=== PATIENT | female | born 1985 | race Caucasian/White ===

== ENCOUNTER 2016-12-19 22:15 | Emergency (ER) | payer MEDICAID ==
[2016-12-19] MEDS ORDERED: IPRATROPIUM/ALBUTEROL 3 ML DEYVIAL IH ONE (23:06)
[2016-12-19] MEDS ORDERED: predniSONE 20 MG TAB PO ONE (23:35)
--- NOTE | 2016-12-19 23:38 | EDPHY ---
H & P Stated Complaint: FEVER SEVERE COUGH SINCE SAT NIGHT Time Seen by Provider: 12/19/16 23:04 HPI/ROS: HPI The patient presents with Cough for the last 3 days which is worse at night, though constant, dry without any sputum production, not associated with any rhinorrhea or sore throat. She is not sure if she had a fever. She denies any known sick contacts. She does have a history of asthma and her albuterol as currently . She does not feel it is helping her with her symptoms. She denies any hemoptysis. REVIEW OF SYSTEMS Constitutional: No fever, no chills. Eyes: No discharge. ENT: No sore throat. Cardiovascular: No chest pain, no palpitations. Respiratory: see HPI Gastrointestinal: No abdominal pain, no vomiting. Genitourinary: No hematuria. Musculoskeletal: No back pain. Skin: No rashes. Neurological: No headache. PMHx: asthma Soc Hx: nonsmoker PHYSICAL General Appearance: Alert, no distress Eyes: Pupils equal and round no pallor or injection ENT, Mouth: Mucous membranes moist Respiratory: occasional dry cough, breathing comfortably,There are no retractions, lungs are clear to auscultation Cardiovascular: Regular rate and rhythm Gastrointestinal: Abdomen is soft and non-tender, no masses, bowel sounds normal Neurological: A&O, moves all extremities Skin: Warm and dry, no rashes Musculoskeletal: Neck is supple non tender Extremities: symmetrical, full range of motion Psychiatric: Patient is oriented X 3, there is no agitation Source: Patient Exam Limitations: No limitations - Personal History Current Tetanus/Diphtheria Vaccine: Yes Current Tetanus Diphtheria and Acellular Pertussis (TDAP): Yes Tetanus Vaccine Date: <10 YRS - Medical/Surgical History Hx Asthma: Yes Hx Chronic Respiratory Disease: No Hx Diabetes: No Hx Cardiac Disease: No Hx Renal Disease: Yes Hx Cirrhosis: No Hx Alcoholism: No Hx HIV/AIDS: No Hx Splenectomy or Spleen Trauma: No Other PMH: concussions, wrist surgery, elbow surgery, shoulder surgery, kidney stones, R knee sx, asthma, uti's, "horseshoe kidney" - Social History Smoking Status: Never smoked Constitutional: Initial Vital Signs Temperature (C) 37.3 C 12/19/16 22:20 Heart Rate 112 H 12/19/16 22:20 Respiratory Rate 18 12/19/16 22:20 Blood Pressure 117/90 H 12/19/16 22:20 O2 Sat (%) 97 12/19/16 22:20 O2 Delivery Mode Room Air Allergies/Adverse Reactions: latex [Latex] Allergy (Verified 12/19/16 22:22) Other-Enter Comments milk Allergy (Verified 12/19/16 22:22) Home Medications: Medication Instructions Recorded Citalopram [CeleXA 20 MG] 20 mg PO HS 01/07/13 Ibuprofen [Motrin (*)] 800 mg PO Q6 #15 tab 06/16/14 Albuterol [Proventil] 17 gm IH Q2H PRN #2 aerosol 12/19/16 Hydrocodone/Acetaminophen 1 each PO 12/19/16 [Hydrocodon-Acetaminophen 5-325] Oxybutynin Chloride [Ditropan 5mg 5 mg PO 12/19/16 (RX)] Sulfamethox/Tmp 800/160 mg 1 tab PO 12/19/16 [Bactrim Ds] predniSONE [Prednisone] 40 mg PO DAILY #16 tablet 12/19/16 Medical Decision Making - Diagnostics Imaging: chest x-ray two views shows no infiltrate, mild airways disease, reviewed by Dr. Natarajan images were reviewed by me on the PAC system. Differential Diagnosis: This is a 31-year-old female with asthma who presents with several days of cough with possible subjective fever. On exam, she is not hypoxic and generally well appearing. She has received a DuoNeb prior to my assessment which has helped her symptoms. Differential diagnosis includes viral URI, pneumonia, asthma exacerbation. The patient was given a dose of prednisone, I feel she is likely suffering from a viral URI with superimposed asthma exacerbation which is mild. I will refill her albuterol for her and I have advised her to follow up with her regular doctor in 2 days if she is not feeling better. She is in agreement with this plan. - Data Points Medications Given: Discontinued Medications Albuterol/Ipratropium (Duoneb) 3 ml IH EDNOW ONE Stop: 12/19/16 23:07 Last Admin: 12/19/16 23:13 Dose: 3 ml Prednisone (Prednisone) 60 mg PO EDNOW ONE Stop: 12/19/16 23:36 Last Admin: 12/20/16 00:23 Dose: 60 mg Departure - Departure Disposition: Home, Routine, Self-Care Clinical Impression: Exacerbation of asthma Upper respiratory tract infection Qualifiers: URI type: unspecified viral URI Qualified Code(s): J06.9 - Acute upper respiratory infection, unspecified Condition: Good Instructions: Upper Respiratory Infection (ED) Additional Instructions: Please take your albuterol every 2-4 hours as needed for cough and wheezing. You should take the prednisone for the next 4 days. You should return to the emergency room if you're worse in any way. Otherwise, please follow-up with your primary care doctor in 2 days. Referrals: Keri Glass MD [Primary Care Provider] - As per Instructions Prescriptions: Albuterol [Proventil] 17 gm IH Q2H PRN #2 aerosol PRN Reason: cough predniSONE [Prednisone] 40 mg PO DAILY #16 tablet
[2016-12-20 00:24] VITALS: BP 116/87; PULSE 82; RESP 16; TEMP 98.8; O2SAT 94
== END 2016-12-20 00:15 | disposition home or self-care (01) ==
DX: J45.901 Unspecified asthma with (acute) exacerbation (principal); J06.9 Acute upper respiratory infection, unspecified; Z91.040 Latex allergy status

== ENCOUNTER → 2017-09-22 | Outpatient (CLI) | payer MEDICAID | LOC: GIMAGING 15:44 | PROVIDERS: ATTEND Family Medicine | DX: R05 Cough (principal) | CPT/HCPCS: 71020-PO ==

== ENCOUNTER 2017-11-10 05:10 | Emergency (ER) | payer MEDICAID ==
[2017-11-10] MEDS ORDERED: CALCIUM CHLORIDE 1 GM/10 ML INJ IVP ONE (05:11)
[2017-11-10] MEDS ORDERED: NA BICARBONATE 50 MEQ/50 ML VIAL IV ONE (05:11)
[2017-11-10] MEDS ORDERED: EPINEPHrine 1 MG/10 ML SYR IVP ONE ×7 (05:11→06:39)
[2017-11-10] MEDS ORDERED: ATROPINE SULFATE 1 MG/10 ML SYR IVP ONE (05:14)
[2017-11-10] MEDS ORDERED: SODIUM BICARBONATE 50 MEQ/50 ML SYR IVP ONE ×3 (05:16→05:32)
[2017-11-10] MEDS ORDERED: CALCIUM CHLORIDE 1 GM/10 ML INJ IV ONE ×3 (05:17→05:30)
[2017-11-10 05:29] LABS: PLATELET COUNT 150 10^3/uL (150-400)
[2017-11-10 05:40] LABS: INR 1.24 (0.83-1.16); PROTIME(PATIENT) 15.8 SEC (12.0-15.0)
--- NOTE | 2017-11-10 05:54 | EDPHY ---
H & P Stated Complaint: Code HPI/ROS: HPI CHIEF COMPLAINT: Cardiopulmonary arrest HISTORY OF PRESENT ILLNESS: This patient is a 32-year-old female, history of asthma, presents to the emergency room by EMS as a cardiopulmonary arrest, with initial ROSC. EMS was called to her residence for shortness of breath, nausea, and vomiting and diarrhea when they arrived they found her on the floor vomiting and she was complaining of shortness of breath. They put her on the stretcher and started a DuoNeb and transported her to the truck to place her on CPAP as she appeared to be in significant respiratory distress. When transporting her into the ambulance she apparently went to an agonal respiration , went from a tachycardic rhythm down into a bradycardic rhythm and lost her pulse. They immediately started CPR. They gave 1 mg epinephrine, also gave her 1 mg Narcan. They transported the patient emergently to [facility] Emergency room, to ER room 1, where I greeted her upon arrival. When she arrived to the emergency room she was in a sinus tachycardia rhythm, she was being bagged, however shortly after arrival she Brijesh down into the 30s lost her pulse and we started CPR again. She was intubated emergently upon arrival by myself. After 35 min of ACLS protocol CPR, multiple rounds of epinephrine, multiple rounds of bicarb, and multiple rounds of calcium the patient had no return of spontaneous circulation she was in PEA throughout the rest of the 35 mins. She had dilated 8 mm equal pupils. During the 35 minutes of resuscitation, her mother did show up. After 35 min of ACLS protocol, this was unfortunately unsuccessful, she did not return to spontaneous circulation and the decision was made to no longer continue CPR and resuscitation efforts. A bedside ultrasound was performed. There was no cardiac activity seen. Past Medical History: Anxiety, asthma Past Surgical History: Unknown surgical history Social History: Unknown drugs alcohol or tobacco Family History: Unknown ROS REVIEW OF SYSTEMS: limited due the patient's clinical state. Exam Constitutional unresponsive. Eyes 8 mm dilated equal pupils not reactive to light HENT atraumatic exam Respiratory bagged, clear breath sounds with bagging Cardiovascular PEA rhythm no pulses. Gastrointestinal distended abdomen Musculoskeletal no obvious signs of trauma. Skin cool extremities, pale skin Neurologic unresponsive Differential Diagnosis: Includes but is not limited to in a particular order cardiopulmonary arrest, respiratory distress leading to cardiopulmonary arrest, electrolyte disturbance, sepsis, acute AL, other cardiac arrhythmia Medical Decision Making: Plan for this patient she is immediately greeted upon arrival to the emergency room where she was emergently intubated by myself with glide scope a 7.0 endotracheal tube was directly placed through the cords. Upon arrival the patient Brijesh down into a PA bradycardic rhythm. Patient immediately had CPR and multiple rounds of ACLS protocol. Patient was given multiple rounds of epinephrine, bicarb, calcium. She had 35 min of resuscitative efforts here in the emergency room at approximately 10-15 minutes of resuscitative efforts prior to arriving. Unfortunately the patient did not return to spontaneous circulation. The mom arrived we made a decision to no longer pursue resuscitative efforts. Critical Care: Total Critical Care Time Spent Managing this Patient: 35Minutes. This time was spent Exclusively with this patient. This Care was exclusive of procedures. The Organ System/life at risk was cardiopulmonary arrest, respiratory This Patient was in Critical Condition because cardiopulmonary arrest ED intubation Procedure: Upon arrival to ER room 2. The patient was emergently intubated by myself. Direct view of the cords were visualized by the glide scope. A 7.0 endotracheal tube was placed. I saw the tube go directly through the cords. There is humidified return air in the tube. Good capnography for change. Bilateral breath sounds. 35 min of ACLS protocol with multiple rounds of epinephrine, bicarb, calcium and multiple rounds of continuous CPR was performed. This was unsuccessful. Patient time of 0543AM. Mother updated at bedside. Source: Patient, EMS - Personal History Current Tetanus/Diphtheria Vaccine: Unsure Current Tetanus Diphtheria and Acellular Pertussis (TDAP): Unsure Tetanus Vaccine Date: <10 YRS - Medical/Surgical History Hx Asthma: Yes Hx Chronic Respiratory Disease: No Hx Diabetes: No Hx Cardiac Disease: No Hx Renal Disease: Yes Hx Cirrhosis: No Hx Alcoholism: No Hx HIV/AIDS: No Hx Splenectomy or Spleen Trauma: No Other PMH: concussions, wrist surgery, elbow surgery, shoulder surgery, kidney stones, R knee sx, asthma, uti's, "horseshoe kidney" - Social History Smoking Status: Never smoked Constitutional: Initial Vital Signs Heart Rate 70 11/10/17 05:10 Respiratory Rate 10 L 11/10/17 05:10 O2 Sat (%) 78 L 11/10/17 05:10 O2 Delivery Mode Bag Valve Mask Allergies/Adverse Reactions: latex [Latex] Allergy (Verified 11/10/17 05:48) Other-Enter Comments milk Allergy (Verified 11/10/17 05:48) Home Medications: Medication Instructions Recorded Citalopram [CeleXA 20 MG] 20 mg PO HS 01/07/13 Ibuprofen [Motrin (*)] 800 mg PO Q6 #15 tab 06/16/14 Albuterol [Proventil] 17 gm IH Q2H PRN #2 aerosol 12/19/16 Hydrocodone/Acetaminophen 1 each PO 12/19/16 [Hydrocodon-Acetaminophen 5-325] Oxybutynin Chloride [Ditropan 5mg 5 mg PO 12/19/16 (RX)] Sulfamethox/Tmp 800/160 mg 1 tab PO 12/19/16 [Bactrim Ds] predniSONE [Prednisone] 40 mg PO DAILY #16 tablet 12/19/16 Medical Decision Making - Data Points Laboratory Results: Laboratory Results 11/10/17 05:21 11/10/17 05:21 11/10/17 11/10/17 11/10/17 05:21 05:21 05:21 WBC RBC Hgb POC Hgb Hct POC Hct MCV MCH MCHC RDW Plt Count MPV Neut % (Auto) Lymph % (Auto) Person % (Auto) Eos % (Auto) Baso % (Auto) Nucleat RBC Rel Count Absolute Neuts (auto) Absolute Lymphs (auto) Absolute Monos (auto) Absolute Eos (auto) Absolute Basos (auto) Absolute Nucleated RBC Immature Gran % Immature Gran # PT 15.8 SEC H SEC (12.0-15.0) INR 1.24 H (0.83-1.16) APTT 23.1 SEC SEC (23.0-38.0) POC Sodium Sodium 147 mEq/L H mEq/L (135-145) POC Potassium Potassium 3.5 mEq/L mEq/L (3.5-5.2) POC Chloride Chloride 105 mEq/L mEq/L (97-110) Carbon Dioxide 12 mEq/l L mEq/l (22-31) Anion Gap 30 mEq/L H mEq/L (8-16) POC BUN BUN 10 mg/dL mg/dL (7-23) Creatinine 1.4 mg/dL H mg/dL (0.6-1.0) POC Creatinine Estimated GFR 44 Glucose 285 mg/dL H mg/dL (70-100) POC Glucose Calcium 9.0 mg/dL mg/dL (8.5-10.4) Troponin I 0.057 ng/mL H ng/mL (0.000-0.034) Beta HCG, Qual NEGATIVE Ethyl Alcohol < 10 mg/dL mg/dL (0-10) 11/10/17 11/10/17 05:21 05:14 WBC 17.32 10^3/uL H 10^3/uL (3.80-9.50) RBC 4.06 10^6/uL L 10^6/uL (4.18-5.33) Hgb 13.0 g/dL g/dL (12.6-16.3) POC Hgb 14.3 gm/dL gm/dL (12.6-16.3) Hct 42.5 % % (38.0-47.0) POC Hct 42 % % (38-47) MCV 104.7 fL H fL (81.5-99.8) MCH 32.0 pg pg (27.9-34.1) MCHC 30.6 g/dL L g/dL (32.4-36.7) RDW 13.2 % % (11.5-15.2) Plt Count 150 10^3/uL 10^3/uL (150-400) MPV 10.9 fL fL (8.7-11.7) Neut % (Auto) 33.0 % L % (39.3-74.2) Lymph % (Auto) 56.3 % H % (15.0-45.0) Person % (Auto) 8.5 % % (4.5-13.0) Eos % (Auto) 0.8 % % (0.6-7.6) Baso % (Auto) 0.4 % % (0.3-1.7) Nucleat RBC Rel Count 0.2 % % (0.0-0.2) Absolute Neuts (auto) 5.72 10^3/uL 10^3/uL (1.70-6.50) Absolute Lymphs (auto) 9.75 10^3/uL H 10^3/uL (1.00-3.00) Absolute Monos (auto) 1.47 10^3/uL H 10^3/uL (0.30-0.80) Absolute Eos (auto) 0.14 10^3/uL 10^3/uL (0.03-0.40) Absolute Basos (auto) 0.07 10^3/uL 10^3/uL (0.02-0.10) Absolute Nucleated RBC 0.04 10^3/uL H 10^3/uL (0-0.01) Immature Gran % 1.0 % % (0.0-1.1) Immature Gran # 0.17 10^3/uL H 10^3/uL (0.00-0.10) PT INR APTT POC Sodium 145 mEq/L mEq/L (135-145) Sodium POC Potassium 3.2 mEq/L L mEq/L (3.3-5.0) Potassium POC Chloride 105 mEq/L mEq/L (97-110) Chloride Carbon Dioxide Anion Gap POC BUN 11 mg/dL mg/dL (7-23) BUN Creatinine POC Creatinine 1.4 mg/dL H mg/dL (0.6-1.0) Estimated GFR Glucose POC Glucose 285 mg/dL H mg/dL (70-100) Calcium Troponin I Beta HCG, Qual Ethyl Alcohol Medications Given: Discontinued Medications Atropine Sulfate (Atropine 1 Mg/10 Ml Syringe) 1 mg IVP EDNOW ONE Stop: 11/10/17 05:15 Last Admin: 11/10/17 05:14 Dose: 1 mg Calcium Chloride (Calcium Chloride) 1 gm IV EDNOW ONE Stop: 11/10/17 05:18 Last Admin: 11/10/17 05:17 Dose: 1 gm Calcium Chloride (Calcium Chloride) 1 gm IV EDNOW ONE Stop: 11/10/17 05:26 Last Admin: 11/10/17 05:25 Dose: 1 gm Calcium Chloride (Calcium Chloride) 1 gm IV EDNOW ONE Stop: 11/10/17 05:31 Last Admin: 11/10/17 05:30 Dose: 1 gm Epinephrine HCl (Epinephrine) 1 mg IVP EDNOW ONE Stop: 11/10/17 05:16 Last Admin: 11/10/17 05:15 Dose: 1 mg Epinephrine HCl (Epinephrine) 1 mg IVP EDNOW ONE Stop: 11/10/17 05:17 Last Admin: 11/10/17 05:16 Dose: 1 mg Epinephrine HCl (Epinephrine) 1 mg IVP EDNOW ONE Stop: 11/10/17 05:25 Last Admin: 11/10/17 05:24 Dose: 1 mg Epinephrine HCl (Epinephrine) 1 mg IVP EDNOW ONE Stop: 11/10/17 05:30 Last Admin: 11/10/17 05:29 Dose: 1 mg Epinephrine HCl (Epinephrine) 1 mg IVP EDNOW ONE Stop: 11/10/17 05:39 Last Admin: 11/10/17 05:38 Dose: 1 mg Sodium Bicarbonate (Sodium Bicarbonate) 50 meq IVP EDNOW ONE Stop: 11/10/17 05:17 Last Admin: 11/10/17 05:16 Dose: 50 meq Sodium Bicarbonate (Sodium Bicarbonate) 50 meq IVP EDNOW ONE Stop: 11/10/17 05:25 Last Admin: 11/10/17 05:24 Dose: 50 meq Sodium Bicarbonate (Sodium Bicarbonate) 50 meq IVP EDNOW ONE Stop: 11/10/17 05:33 Last Admin: 11/10/17 05:32 Dose: 50 meq Point of Care Test Results: 11/10/17 05:14 POC Sodium 145 POC Potassium 3.2 L POC Chloride 105 POC BUN 11 POC Creatinine 1.4 H POC Glucose 285 H Departure - Departure Disposition: Clinical Impression: Cardiopulmonary arrest Condition: Critical Referrals: Patient,NotPresent [Primary Care Provider] - As per Instructions
[2017-11-10 05:58] VITALS: BP 88/58; PULSE 115; RESP 35; O2SAT 82
[2017-11-10] MEDS ORDERED: NS 1,000 ML IV ONE (06:35)
== END 2017-11-10 07:40 | disposition expired ==
LOC: EDUNIT#
PROC: 0BH17EZ Insertion of Endotracheal Airway into Trachea, Via Natural or Artificial Opening (ICD-10-PCS; principal; 2017-11-10)
DX: I46.9 Cardiac arrest, cause unspecified (principal); J45.909 Unspecified asthma, uncomplicated
CPT/HCPCS: 82947-QW; 96374; G0480